=== PATIENT | female | born 1970 | race Caucasian/White ===

== ENCOUNTER 2019-02-06 18:44 | Emergency (ER) | payer MEDICAID ==
[~2019-02-06] VITALS: Ht 167.6 cm; Wt 84.1 kg
[~2019-02-06 18:44] MED LIST: HYDROCORTISONE30 G8 TOPICAL; PROZAC40 MG PO
[2019-02-06 18:48] VITALS: Ht 167.6 cm; Wt 84.1 kg
[2019-02-06] MEDS ORDERED: MOBIC7.5 MG PO (18:50)
[2019-02-06] MEDS ORDERED: BACLOFEN10 MG PO (18:50)
[2019-02-06] MEDS ORDERED: ULTRAM50 MG PO (18:50)
[2019-02-06] MEDS ORDERED: PREDNISONE50 MG PO (19:27)
[2019-02-06] MEDS ORDERED: ACETAMINOPHEN500 M1 PO (19:27)
[2019-02-06 19:50] VITALS: BP 125/78
== END 2019-02-06 19:51 | disposition home or self-care (01) ==
LOC: D.ER 18:44
DX: M54.32 Sciatica, left side (principal); M54.42 Lumbago with sciatica, left side; F17.200 Nicotine dependence, unspecified, uncomplicated

== ENCOUNTER 2020-08-18 15:30 | Outpatient (CLI) | payer MEDICAID ==
[2019-02-06 18:48] VITALS: BMI 29.9
[~2020-08-18 15:30] MED LIST changes: +ACETAMINOPHEN500 M1 PO; +BACLOFEN10 MG PO; +MOBIC7.5 MG PO; +PREDNISONE50 MG PO; +ULTRAM50 MG PO
== END 2020-08-18 23:59 | disposition home or self-care (01) ==
LOC: D.MAMMO 15:30
PROVIDERS: ATTEND Family Medicine
DX: Z12.31 Encounter for screening mammogram for malignant neoplasm of breast (principal)

== ENCOUNTER 2021-03-27 18:51 | Emergency (ER) | payer OTHER ==
[~2021-03-27] VITALS: Ht 167.6 cm; Wt 100.0 kg
[~2021-03-27 18:51] MED LIST changes: +MUPIROCIN22 GM TOPICAL
[2021-03-27 19:17] VITALS: Ht 167.6 cm; Wt 100.0 kg
--- NOTE | 2021-03-27 20:58 | NUR ---
DR LY NOTIFIED AND REVIEWED PT'S BEHAVIOR AND ASSESSMENT RESULTS. PT IS A LOW RISK PER DR LY. DR LY STATED TO GIVE RESOURCES TO PT AT TIME OF DISCHARGE. NO FURTHER ORDERS AT THIS TIME. RESOURCES REVIEWED WITH PT AND SHE VERBALIZED UNDERSTANDING.
[2021-03-27 21:04] VITALS: BP 108/67
== END 2021-03-27 21:05 | disposition home or self-care (01) ==
LOC: D.ER 18:51
DX: M62.830 Muscle spasm of back (principal); M54.6 Pain in thoracic spine; K21.9 Gastro-esophageal reflux disease without esophagitis